=== PATIENT | female | born 1955 | race Caucasian/White ===

== ENCOUNTER 2021-03-03 08:37 | Emergency (ER) | payer OTHER ==
[~2021-03-03] VITALS: Ht 167.6 cm; Wt 102.1 kg
[2021-03-03 09:14] VITALS: BP 165/95
[2021-03-03] MEDS ORDERED: PRILOSEC OTC20 MG PO (09:21)
[2021-03-03] MEDS ORDERED: ALKA-SELTZER P1 EAC2 PO (09:21)
[2021-03-03] MEDS ORDERED: IMODIUM A-D2 MG PO (09:22)
== END 2021-03-03 11:00 | disposition left against medical advice (07) ==
LOC: M.ERS 08:37
DX: J02.9 Acute pharyngitis, unspecified (principal); R50.9 Fever, unspecified; Z53.21 Procedure and treatment not carried out due to patient leaving prior to being seen by health care provider